=== PATIENT | male | born 1990 | race Caucasian/White ===

== ENCOUNTER 2025-04-22 12:49 | Emergency (ER) | payer MEDICARE, MEDICAID ==
[~2025-04-22] VITALS: Ht 193 cm; Wt 73.2 kg
[2025-04-22 12:50] VITALS: BP 147/72; PULSE 105; TEMP 98.5; O2SAT 98
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
[2025-04-22 15:45] VITALS: RESP 16
[2025-04-22] MEDS: ketorolac trometh 30MG/ML vial 30 MG/ML VIAL IM ONE (15:45)
[2025-04-22] MEDS ORDERED: iohexol 300mg/ml 100ml inj. ONE (15:56)
== END 2025-04-22 17:06 | disposition left against medical advice (07) ==
LOC: ER 12:50 → EEVIPCON 12:50 → ER 17:06
DX: M54.9 Dorsalgia, unspecified (principal); R13.10 Dysphagia, unspecified; R07.0 Pain in throat
CPT/HCPCS: 96372; 99283; J1885; Q9967